=== PATIENT | male | born 1950 | race Caucasian/White ===

== ENCOUNTER → 2017-07-07 | Outpatient (CLI) | payer MEDICARE, OTHER ==
[~2017-07-07] MED LIST: ARIXTRA; ASPIRIN EC325 M1; CLARITIN10 MG PO; ENDOCET 5-3251 EACH PO; IBUPROFEN 800800 M1 PO; OXYIR 5 MG CAPSU5 M1; OXYIR5 MG; PEPCID COMPLET1 EACH PO; PERCOCET 5-3251 EACH
[2017-07-08 15:05] LABS: IgA 345 mg/dL (61-437); IgG 1234 mg/dL (700-1600); IgM 44 mg/dL (20-172)
== END ==
LOC: M.LAB 13:36
DX: M17.0 Bilateral primary osteoarthritis of knee (principal); M81.0 Age-related osteoporosis without current pathological fracture

== ENCOUNTER → 2018-04-11 | Outpatient (CLI) | payer MEDICARE, OTHER | END | disposition home or self-care (01) | LOC: M.RAD 10:00 | DX: M25.551 Pain in right hip (principal); M19.90 Unspecified osteoarthritis, unspecified site; K21.9 Gastro-esophageal reflux disease without esophagitis; Z79.82 Long term (current) use of aspirin; Z79.899 Other long term (current) drug therapy; Z79.891 Long term (current) use of opiate analgesic; Z98.890 Other specified postprocedural states ==

== ENCOUNTER → 2018-06-14 | Outpatient (CLI) | payer MEDICARE, OTHER | LOC: M.RAD 12:51 | DX: M71.572 Other bursitis, not elsewhere classified, left ankle and foot (principal); M79.89 Other specified soft tissue disorders ==

== ENCOUNTER 2019-09-12 17:54 | Observation (INO) | payer MEDICARE, OTHER ==
[~2019-09-12] VITALS: Ht 182.9 cm; Wt 103.0 kg
[2019-09-12 18:09] VITALS: BP 134/86
[2019-09-12 18:29] LABS: ABSOLUTE EOSINOPHILS 0.1 thou/uL (0.0-0.7); ABSOLUTE LYMPHOCYTES 1.8 thou/uL (0.8-5.3); ABSOLUTE MONOCYTES 0.3 thou/uL (0.0-1.2); ABSOLUTE NEUTROPHILS 3.2 thou/uL (1.6-8.1); BASOPHILS 0.5 %; EOSINOPHILS 1.9 %; HEMATOCRIT 42.5 % (42.0-52.0); HEMOGLOBIN 14.6 gm/dL (14.0-18.0); MCH 32.6 pg (26.0-34.0); MCHC 34.3 g/dL (28.0-37.0); MCV 95.1 fL (80.0-100.0); MPV 7.3 fl. (7.2-11.1); NUCLEATED RBCS 0 /100WBC; PLATELET COUNT* 217 thou/uL (150-400); POLYS 59.6 %; RBC 4.47 mil/uL (4.50-6.00); RDW-CV 12.8 % (10.5-14.5); WBC 5.4 thou/uL (4.0-11.0)
[2019-09-12 18:38] LABS: APTT 23.1 Seconds (25.0-31.3)
[2019-09-12 18:39] LABS: CALCIUM 8.1 mg/dL (8.5-10.1); CREATININE 1.3 mg/dL (0.6-1.3); POTASSIUM 3.9 mmol/L (3.5-5.1)
[2019-09-12 18:49] LABS: ALBUMIN 3.3 g/dL (3.4-5.0); TOTAL BILIRUBIN 0.2 mg/dL (<0.1-1.0); TOTAL PROTEIN 7.1 g/dL (6.4-8.2)
[2019-09-12 20:10] VITALS: BP 138/81
[2019-09-12 20:30] VITALS: BP 134/81
--- NOTE | 2019-09-12 20:30 | NUR ---
ADMITTED TO ROOM, PT CALM AND APPEARS IN NO DISTRESS. TELEMETRY APPLIED SHOWING SR. DENIES DIZZINESS, PAIN OR NAUSEA. SEE ADMISSION ASSESSMENT AND HX. WILL CONT TO MONITOR AND ASSIST NEEDED.
[2019-09-13] VITALS: BP 122/71
[2019-09-13 04:00] VITALS: BP 122/80
[2019-09-13 05:36] LABS: ABSOLUTE EOSINOPHILS 0.4 thou/uL (0.0-0.7); ABSOLUTE LYMPHOCYTES 1.4 thou/uL (0.8-5.3); ABSOLUTE MONOCYTES 0.5 thou/uL (0.0-1.2); ABSOLUTE NEUTROPHILS 4.7 thou/uL (1.6-8.1); BASOPHILS 0.4 %; EOSINOPHILS 5.5 %; HEMATOCRIT 39.6 % (42.0-52.0); HEMOGLOBIN 13.8 gm/dL (14.0-18.0); LYMPHOCYTES 19.8 %; MCH 33.3 pg (26.0-34.0); MCHC 34.7 g/dL (28.0-37.0); MCV 95.7 fL (80.0-100.0); MONOCYTES 6.9 %; MPV 7.3 fl. (7.2-11.1); NUCLEATED RBCS 0 /100WBC; PLATELET COUNT* 203 thou/uL (150-400); POLYS 67.4 %; RBC 4.14 mil/uL (4.50-6.00); RDW-CV 12.8 % (10.5-14.5)
[2019-09-13 05:42] LABS: ANION GAP 7 mmol/L (7-16); BUN 14 mg/dL (7-18); CALCIUM 7.8 mg/dL (8.5-10.1); CHLORIDE 108 mmol/L (98-107); CO2 27 mmol/L (21-32); CREATININE 1.2 mg/dL (0.6-1.3); GLUCOSE 99 mg/dL (70-99); POTASSIUM 4.3 mmol/L (3.5-5.1); SODIUM 142 mmol/L (136-145); TROPONIN-I LEVEL <0.06 ng/mL (<0.06)
--- NOTE | 2019-09-13 06:13 | NUR ---
SLEPT WELL TONIGHT. NO CHANGE IN ASSESSMENT. TELEMETRY CONT TO SHOW SR. INDEPENDENT BRP WITH STEADY GAIT. HS GOALS OF REST AND SAFETY ACHIEVED. HOURLY ROUNDING OBSERVED.
[2019-09-13 08:06] VITALS: BP 117/74
--- NOTE | 2019-09-13 10:28 | EKG ---
[place] [address] ELECTROCARDIOGRAM REPORT Name: MATTIERAFAELANITIN BRODERICK Room: [address] ADM IN .R.#: [id number] Admission: 09/12/19 Attend Phys: Duy Dennis, Discharge: Date of : 52 Date of Service: 09/12/19 [facility] Report #: [id number] THIS REPORT FOR: //name// [facility] ED Test Date: 2019-09-12 Test Time: 18:00:24 Pat Name: RAFAELA PHELPS Department: Room: [facility] Gender: M [employer] Supervisor: TDS : 1950 Requested By: Parth Fitzgerald Order Number: [id number] MD: Ranjan Benitez Measurements Intervals [place] Rate: 74 P: 51 MS: 154 QRS: -27 QRSD: 104 T: 55 QT: 390 QTc: 433 Interpretive Statements Sinus rhythm Borderline left axis deviation Low voltage, precordial leads Compared to ECG 09/13/2012 09:45:09 Low QRS voltage now present T-wave abnormality no longer present Electronically Signed On 09-13-2019 10:27:08 CDT by Ranjan Benitez [email or web address] <ELECTRONICALLY SIGNED> By: Ranjan Benitez MD, FAC 09/13/19 1027 1800 1800 Ranjan Benitez MD, FAC /EPI
[2019-09-13 11:03] VITALS: BP 117/74
--- NOTE | 2019-09-13 11:24 | NUR ---
PT DISCHARGED HOME. COPY OF DISCHARGE INSTRUCTIONS TO PT WITH EXPLAINATION. PT VERBALIZED UNDERSTANDING. IV ACCESS AND CLERICAL CAR CHECKER REMOVED.
== END 2019-09-13 11:27 | disposition home or self-care (01) ==
LOC: M.ERS 17:54 → M.2W 18:45 → M.TBA-ER 18:45 → M.2W 18:45
PROVIDERS: Family Medicine; ADMIT Internal Medicine; ATTEND Internal Medicine
DX: T67.5XXA Heat exhaustion, unspecified, initial encounter (principal); R42 Dizziness and giddiness; K21.9 Gastro-esophageal reflux disease without esophagitis; E86.0 Dehydration; X58.XXXA Exposure to other specified factors, initial encounter; Y92.89 Other specified places as the place of occurrence of the external cause; Y93.89 Activity, other specified; Y99.8 Other external cause status